=== PATIENT | female | born 1950 ===

== ENCOUNTER 2021-12-20 05:39 | Outpatient (CLI) | payer MEDICARE, OTHER ==
[~2021-12-20] VITALS: Ht 162.5 cm; Wt 95.4 kg
[2021-12-20] MEDS ORDERED: CYCL10TA25 PO (13:51)
[2021-12-20] MEDS ORDERED: MTP25TSR PO (13:51)
[2021-12-20] MEDS ORDERED: ATOR40TA70 PO (13:51)
[2021-12-20] MEDS ORDERED: CETI-187 PO (13:51)
[2021-12-20] MEDS ORDERED: CALC-676 PO (13:51)
[2021-12-20] MEDS ORDERED: FLUO10CA29 PO (13:51)
[2021-12-20] MEDS ORDERED: PROP50TA2 PO (13:51)
[2021-12-20] MEDS ORDERED: ASPI-999 PO (13:51)
[2021-12-20] MEDS ORDERED: MULT-974 PO (13:52)
[2021-12-20] MEDS ORDERED: ASCO100024 PO (13:52)
== END 2021-12-20 14:50 | disposition home or self-care (01) ==
LOC: PREOP 05:39
PROVIDERS: ATTEND Specialist
DX: Z01.818 Encounter for other preprocedural examination (principal)